=== PATIENT | female | born 1960 | race Caucasian/White ===

== ENCOUNTER → 2017-03-14 | Outpatient (CLI) | payer BC ==
[~2017-03-14] MED LIST: AMLO25TA PO; ASPI1TAB PO; FOLI5INJ2 SC; LOSA100T36 PO; METH2.5TA PO; VALS1TAB46 PO; VENL100T PO
[2017-03-14 16:32] LABS: ALBUMIN 3.9 GM/DL (3.2-5.2)
== END ==
LOC: M LAB 15:09
PROVIDERS: ATTEND Otolaryngology
DX: R79.89 Other specified abnormal findings of blood chemistry (principal)

== ENCOUNTER 2017-04-05 10:34 | Emergency (ER) | payer BC ==
[~2017-04-05] VITALS: Ht 152.4 cm; Wt 61.8 kg
[2017-04-05] MEDS ORDERED: LOSA100T36 PO (10:49)
[2017-04-05] MEDS ORDERED: VENL100T PO (10:49)
[2017-04-05] MEDS ORDERED: FOLI5INJ2 SC (10:49)
[2017-04-05] MEDS ORDERED: METH2.5TA PO (10:49)
[2017-04-05] MEDS ORDERED: AMLO25TA PO (10:49)
[2017-04-05] MEDS ORDERED: ASPIRIN 81 MG CHEW TABLET PO ONE (12:00)
[2017-04-05] MEDS: NITROGLYCERIN 0.4 MG SUBL TABLET SL PRN ×2 (12:00→12:06)
[2017-04-05 12:06] VITALS: BP 141/87
--- NOTE | 2017-04-05 12:32 | REP ---
Portable chest, AP view, patient sitting: Comparison 01/31/2008. The lung barraza are clear. The cardiac size is normal. The rohit, mediastinum, and bony thorax are unremarkable. Impression: Negative portable chest. Signed by Randolph Gutiérrez MD 04/05/2017 12:23 P
[2017-04-05 12:33] LABS: EOS # 0.1 K/mm3 (0.0-0.50); EOS % 1.5 % (0.0-3.0); LARGE UNSTAINED CELL # 0.2 K/mm3 (0.0-0.4); LARGE UNSTAINED CELL % 3.5 % (0.0-4.0); LYMPH # 1.5 K/mm3 (1.5-4.5); LYMPH % 31.1 % (24.0-44.0); MEAN CORPUSCULAR HEMOGLOBIN 32.7 pg (27.0-33.0); MEAN CORPUSCULAR VOLUME 96.3 fl (80.0-96.0); MONO # 0.2 K/mm3 (0.0-0.8); MONO % 4.4 % (0.0-5.0); NEUTROPHILS # 2.8 K/mm3 (1.8-7.7); NEUTROPHILS % 58.5 % (36.0-66.0); PLATELET COUNT, AUTOMATED 420 k/mm3 (150-450); RED CELL DISTRIBUTION WIDTH 13.2 % (11.5-14.5); WHITE BLOOD COUNT 4.8 K/mm3 (4.0-10.0)
[2017-04-05 12:45] LABS: ALBUMIN 3.9 GM/DL (3.2-5.2); ALBUMIN/GLOBULIN RATIO 1.15 (1.00-1.93); ALKALINE PHOSPHATASE 80 U/L (45-117); ALT/SGPT 26 U/L (12-78); ANION GAP 7 MEQ/L (8-16); AST/SGOT 19 U/L (15-37); BILIRUBIN,DIRECT 0.1 MG/DL (0.0-0.2); BILIRUBIN,TOTAL 0.3 MG/DL (0.2-1.0); BLOOD UREA NITROGEN 22 MG/DL (7-18); CALCIUM LEVEL 9.1 MG/DL (8.5-10.1); CARBON DIOXIDE LEVEL 28 MEQ/L (21-32); CHLORIDE LEVEL 103 MEQ/L (98-107); CREATININE FOR GFR 0.69 MG/DL (0.55-1.02); GLOMERULAR FILTRATION RATE > 60.0 (>51); GLUCOSE, FASTING 93 MG/DL (70-105); POTASSIUM SERUM 3.9 MEQ/L (3.5-5.1); SODIUM LEVEL 138 MEQ/L (136-145); TOTAL PROTEIN 7.3 GM/DL (6.4-8.2)
[2017-04-05] MEDS ORDERED: ASPI1TAB PO (16:24)
[2017-04-05 16:28] VITALS: BP 117/85
--- NOTE | 2017-04-06 07:40 | ECGEPIP ---
Stationary ECG Study [facility] - ED Test Date: 2017-04-05 Pat Name: JOSE CHAIDEZ Department: Room: - Gender: F [place] Ma[place]: TAMARA : 1960 Requested By: Darshan Quiñonez Order Number: [id number] Reading MD: Lottie Graham Measurements Intervals [place] Rate: 101 P: 64 GA: 184 QRS: 79 QRSD: 85 T: 28 QT: 328 QTc: 425 Interpretive Statements SINUS TACHYCARDIA MODERATE ST DEPRESSION NO PRIOR FOR COMPARISON Electronically Signed On 04-06-2017 7:39:39 EDT by Lottie Graham
--- NOTE | 2017-04-06 07:40 | ECGEPIP ---
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
== END 2017-04-05 16:34 | disposition home or self-care (01) ==
LOC: M ED 10:34
DX: R07.89 Other chest pain (principal); I10 Essential (primary) hypertension

== ENCOUNTER → 2017-04-13 | Outpatient (CLI) | payer BC ==
--- NOTE | 2017-04-13 17:53 | REP ---
Right knee five views: Comparison is 10/25/2006. There is tricompartment osteoarthritis that has significantly progressed. There is no joint effusion. Mineralization is normal. There are no calcifications or foreign bodies. Impression: Progressive tricompartment osteoarthritis. Signed by Randolph Gutiérrez MD 04/13/2017 05:38 P
== END ==
LOC: M RAD 16:22
PROVIDERS: ATTEND Nurse Practitioner Adult Health
DX: M25.561 Pain in right knee (principal)

== ENCOUNTER 2017-05-03 15:01 | Emergency (ER) | payer BC ==
[~2017-05-03] VITALS: Ht 152.4 cm; Wt 63.2 kg
[~2017-05-03 15:01] MED LIST changes: -VALS1TAB46 PO
[2017-05-03] MEDS ORDERED: VALS1TAB46 PO (15:11)
[2017-05-03 16:01] LABS: BASO % 0.4 % (0.0-1.0); EOS # 0.1 10^3/uL (0.0-0.50); EOS % 0.7 % (0.0-3.0); IMMATURE GRANULOCYTE % 0.4 % (0-0); LYMPH # 1.7 10^3/uL (1.5-4.5); LYMPH % 20.9 % (24.0-44.0); MEAN CORPUSCULAR HEMOGLOBIN 32.3 pg (27.0-33.0); MEAN CORPUSCULAR HGB CONC 33.3 g/dl (32.0-36.5); MEAN CORPUSCULAR VOLUME 96.9 fl (80.0-96.0); MONO # 0.7 10^3/uL (0.0-0.8); MONO % 8.4 % (0.0-5.0); NEUTROPHILS # 5.7 10^3/uL (1.8-7.7); NEUTROPHILS % 69.2 % (36.0-66.0); PLATELET COUNT, AUTOMATED 363 10^3/uL (150-450); RED CELL DISTRIBUTION WIDTH 13.2 % (11.5-14.5); WHITE BLOOD COUNT 8.2 10^3/uL (4.0-10.0)
[2017-05-03 16:15] LABS: ANION GAP 9 MEQ/L (8-16); BLOOD UREA NITROGEN 34 MG/DL (7-18); CALCIUM LEVEL 9.4 MG/DL (8.5-10.1); CARBON DIOXIDE LEVEL 26 MEQ/L (21-32); CHLORIDE LEVEL 102 MEQ/L (98-107); FREE T4 0.84 NG/DL (0.76-1.46); GLOMERULAR FILTRATION RATE > 60.0 (>51); GLUCOSE, FASTING 94 MG/DL (70-105); POTASSIUM SERUM 3.8 MEQ/L (3.5-5.1); SODIUM LEVEL 137 MEQ/L (136-145)
--- NOTE | 2017-05-03 16:27 | REP ---
Chest two views HISTORY: Syncope Comparison: 04/05/2017 The lungs are clear. The heart is normal in size. The pulmonary vasculature is normal in appearance. The bony structure is intact. IMPRESSION: No acute disease. Signed by Beck Ernandez MD 05/03/2017 04:19 P
--- NOTE | 2017-05-03 17:07 | ECGEPIP ---
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
[2017-05-03 20:48] VITALS: BP 122/56
== END 2017-05-03 20:50 | disposition home or self-care (01) ==
LOC: M ED 15:01
DX: R55 Syncope and collapse (principal); Z87.891 Personal history of nicotine dependence

== ENCOUNTER → 2017-06-06 | Outpatient (CLI) | payer BC ==
[~2017-06-06] MED LIST changes: +VALS1TAB46 PO
[2017-06-06 16:20] LABS: FREE T4 0.88 NG/DL (0.76-1.46)
== END ==
LOC: M LAB 15:07
PROVIDERS: ATTEND Nurse Practitioner Adult Health
DX: R94.6 Abnormal results of thyroid function studies (principal)

== ENCOUNTER → 2017-06-06 | Outpatient (CLI) | payer BC ==
[2017-06-06 15:47] LABS: BASO % 0.5 % (0.0-1.0); EOS # 0.1 10^3/uL (0.0-0.50); EOS % 1.2 % (0.0-3.0); IMMATURE GRANULOCYTE % 0.2 % (0-0); LYMPH # 1.6 10^3/uL (1.5-4.5); LYMPH % 28.2 % (24.0-44.0); MEAN CORPUSCULAR HEMOGLOBIN 32.4 pg (27.0-33.0); MEAN CORPUSCULAR VOLUME 98.3 fl (80.0-96.0); MONO # 0.3 10^3/uL (0.0-0.8); MONO % 4.7 % (0.0-5.0); NEUTROPHILS # 3.7 10^3/uL (1.8-7.7); NEUTROPHILS % 65.2 % (36.0-66.0); PLATELET COUNT, AUTOMATED 364 10^3/uL (150-450); RED CELL DISTRIBUTION WIDTH 13.1 % (11.5-14.5); WHITE BLOOD COUNT 5.7 10^3/uL (4.0-10.0)
[2017-06-06 16:07] LABS: ERYTHROCYTE SEDIMENTATION RATE 13 mm/hr (0-30)
[2017-06-06 16:08] LABS: ALBUMIN 3.7 GM/DL (3.2-5.2); ALT/SGPT 26 U/L (12-78); AST/SGOT 19 U/L (7-37); CREATININE FOR GFR 0.81 MG/DL (0.55-1.02); GLOMERULAR FILTRATION RATE > 60.0 (>51)
== END ==
LOC: M LAB 15:04
PROVIDERS: ATTEND Physician Assistant
DX: Z51.81 Encounter for therapeutic drug level monitoring (principal); Z79.899 Other long term (current) drug therapy

== ENCOUNTER → 2017-06-30 | Outpatient (CLI) | payer BC ==
[2017-06-30 16:15] LABS: BLOOD UREA NITROGEN 29 MG/DL (7-18); CREATININE FOR GFR 0.69 MG/DL (0.55-1.02); GLOMERULAR FILTRATION RATE > 60.0 (>51)
== END ==
LOC: M LAB 15:24
PROVIDERS: ATTEND Otolaryngology
DX: H90.3 Sensorineural hearing loss, bilateral (principal)

== ENCOUNTER → 2018-04-16 | Outpatient (REF) | payer BC | LOC: M SFHCPLAZ 12:01 | DX: A49.01 Methicillin susceptible Staphylococcus aureus infection, unspecified site (principal) | CPT/HCPCS: 87070 ==

== ENCOUNTER → 2018-04-26 | Outpatient (REF) | payer BC ==
[2018-04-26 17:41] LABS: BASO % 0.7 % (0.0-1.0); EOS # 0.1 10^3/uL (0.0-0.50); EOS % 1.8 % (0.0-3.0); HEMATOCRIT 37.2 % (36.0-47.0); HEMOGLOBIN 12.1 g/dl (12.0-15.5); IMMATURE GRANULOCYTE % 0.2 % (0-3.0); LYMPH # 1.5 10^3/uL (1.5-4.5); LYMPH % 32.6 % (24.0-44.0); MEAN CORPUSCULAR HEMOGLOBIN 31.2 pg (27.0-33.0); MEAN CORPUSCULAR HGB CONC 32.5 g/dl (32.0-36.5); MEAN CORPUSCULAR VOLUME 95.9 fl (80.0-96.0); MONO # 0.5 10^3/uL (0.0-0.8); MONO % 10.7 % (0.0-5.0); NEUTROPHILS # 2.4 10^3/uL (1.8-7.7); PLATELET COUNT, AUTOMATED 326 10^3/uL (150-450); RED BLOOD COUNT 3.88 10^6/uL (4.00-5.40); RED CELL DISTRIBUTION WIDTH 14.4 % (11.5-14.5); WHITE BLOOD COUNT 4.5 10^3/uL (4.0-10.0)
== END ==
LOC: M SFHCPLAZ 16:24
DX: T85.9XXD Unspecified complication of internal prosthetic device, implant and graft, subsequent encounter (principal); Y82.8 Other medical devices associated with adverse incidents
CPT/HCPCS: 85025

== ENCOUNTER → 2018-05-08 | Outpatient (CLI) | payer BC | LOC: M WHC 15:13 | DX: Z12.31 Encounter for screening mammogram for malignant neoplasm of breast (principal) | CPT/HCPCS: 77067 ==

== ENCOUNTER → 2018-12-26 | Outpatient (REF) | payer BC ==
[~2018-12-26] MED LIST changes: -ASPI1TAB PO; +ASPI81TA26 PO; -LOSA100T36 PO; +LOSA100T50 PO; +METH2.5T48 PO; -METH2.5TA PO; -VALS1TAB46 PO; +VALS1TAB66 PO
[2018-12-26 11:48] LABS: HEMATOCRIT 42.4 % (36.0-47.0); HEMOGLOBIN 13.9 g/dl (12.0-15.5); MEAN CORPUSCULAR HEMOGLOBIN 32.3 pg (27.0-33.0); MEAN CORPUSCULAR HGB CONC 32.8 g/dl (32.0-36.5); MEAN CORPUSCULAR VOLUME 98.4 fl (80.0-96.0); PLATELET COUNT, AUTOMATED 358 10^3/uL (150-450); RED BLOOD COUNT 4.31 10^6/uL (4.00-5.40); WHITE BLOOD COUNT 4.7 10^3/uL (4.0-10.0)
[2018-12-26 12:17] LABS: ALBUMIN 4.1 GM/DL (3.2-5.2); ALT/SGPT 27 U/L (12-78); BILIRUBIN,TOTAL 0.2 MG/DL (0.2-1.0); BLOOD UREA NITROGEN 21 MG/DL (7-18); CARBON DIOXIDE LEVEL 27 MEQ/L (21-32); CHLORIDE LEVEL 104 MEQ/L (98-107); CHOLESTEROL LEVEL 257 MG/DL (<200); CHOLESTEROL RISK RATIO 3.253 (<5); CREATININE FOR GFR 0.67 MG/DL (0.55-1.30); GLOMERULAR FILTRATION RATE > 60.0 (>51); GLUCOSE, FASTING 89 MG/DL (70-100); HDL CHOLESTEROL 79 MG/DL (>40); LDL CHOLESTEROL 157 MG/DL (<100); MAGNESIUM LEVEL 2.4 MG/DL (1.8-2.4); NON-HDL-C 178 MG/DL; POTASSIUM SERUM 4.7 MEQ/L (3.5-5.1); SODIUM LEVEL 139 MEQ/L (136-145); TOTAL PROTEIN 7.6 GM/DL (6.4-8.2); TRIGLYCERIDES LEVEL 107 MG/DL (<150)
== END ==
LOC: M SFHCPLAZ 08:39
PROVIDERS: ATTEND Internal Medicine
DX: Z01.818 Encounter for other preprocedural examination (principal); I10 Essential (primary) hypertension; M06.9 Rheumatoid arthritis, unspecified

== ENCOUNTER → 2019-06-27 | Outpatient (CLI) | payer BC ==
--- NOTE | 2019-06-27 16:34 | REPMRS ---
Patient History The patient states she has not had a clinical breast exam in over a year. Family history of prostate cancer at age 56 in brother. 3D TOMOSYNTHESIS WAS PERFORMED. The [facility] lifetime risk for breast cancer is 6.6%. Digital Woman Screen Mammo: June 27, 2019 - Exam #: [id number] Bilateral CC and MLO view(s) were taken. Technologist: Regina Smith, Technologist Prior study comparison: May 08, 2018, bilateral digital woman screen mammo performed at [facility]. FINDINGS: There are scattered fibroglandular densities. There has been no change in the appearance of the mammogram from the prior studies. There is a mild amount of residual fibroglandular tissue which is fairly symmetric. There is no interval development of dominant mass, architectural distortion, or clustered microcalcification suggestive of malignancy. Assessment: BI-RADS/ACR category 1 mammogram. Negative Mammogram. Recommendation Routine screening mammogram in 1 year (for women over age 40). This mammogram was interpreted with the aid of an FDA-approved computer-aided dectection system. Electronically Signed By: Randolph Bonilla MD 06/27/19 [id number]
== END ==
LOC: M WHC 15:36
PROVIDERS: ATTEND Nurse Practitioner Adult Health
DX: Z12.31 Encounter for screening mammogram for malignant neoplasm of breast (principal); Z80.42 Family history of malignant neoplasm of prostate

== ENCOUNTER → 2019-08-20 | Outpatient (CLI) | payer BC ==
[2019-08-20 16:37] LABS: BASO % 0.6 % (0.0-1.0); EOS # 0.1 10^3/uL (0.0-0.5); EOS % 0.8 % (0.0-3.0); HEMATOCRIT 41.4 % (36.0-47.0); HEMOGLOBIN 13.9 g/dl (12.0-15.5); LYMPH # 1.8 10^3/uL (1.5-5.0); LYMPH % 24.4 % (24.0-44.0); MEAN CORPUSCULAR HGB CONC 33.6 g/dl (32.0-36.5); MEAN CORPUSCULAR VOLUME 101.2 fl (80.0-96.0); MONO # 0.6 10^3/uL (0.0-0.8); MONO % 8.4 % (0.0-5.0); NEUTROPHILS # 4.7 10^3/uL (1.5-8.5); NEUTROPHILS % 65.5 % (36.0-66.0); PLATELET COUNT, AUTOMATED 377 10^3/uL (150-450); RED BLOOD COUNT 4.09 10^6/uL (4.00-5.40); WHITE BLOOD COUNT 7.2 10^3/uL (4.0-10.0)
[2019-08-20 16:59] LABS: ALBUMIN 4.2 GM/DL (3.2-5.2); ALT/SGPT 24 U/L (12-78); C REACTIVE PROTEIN QUANTITATIV < 0.30 MG/DL (0.00-0.30); CREATININE FOR GFR 0.66 MG/DL (0.55-1.30); GLOMERULAR FILTRATION RATE > 60.0 (>51)
[2019-08-20 17:22] LABS: ERYTHROCYTE SEDIMENTATION RATE 17 mm/hr (0-30)
== END ==
LOC: M LAB 15:11
PROVIDERS: ATTEND Physician Assistant
DX: Z79.899 Other long term (current) drug therapy (principal)

== ENCOUNTER → 2019-10-08 | Outpatient (CLI) | payer BC ==
--- NOTE | 2019-10-08 11:10 | REP ---
Chest x-ray: Two views. History: History of aspiration. Chest pain. Comparison chest x-ray: May 03, 2017. Findings: The lungs remain hyperinflated with flattening of the hemidiaphragms consistent with some degree of COPD. No infiltrate is seen. Pleural angles are sharp. Heart is not enlarged. Pulmonary vasculature is not increased. No bony abnormality. Impression: Hyperinflation. No infiltrate seen. No acute disease. Electronically Signed by Noe Napoles MD 10/08/2019 11:02 A
== END ==
LOC: M ADAMS 10:23
PROVIDERS: ATTEND Physician Assistant Medical
DX: T17.908A Unspecified foreign body in respiratory tract, part unspecified causing other injury, initial encounter (principal); Y92.009 Unspecified place in unspecified non-institutional (private) residence as the place of occurrence of the external cause

== ENCOUNTER → 2019-10-29 | Outpatient (CLI) | payer BC ==
[~2019-10-29] MED LIST changes: +E-Z-GAS II EFFERVESCENT PACKET (SODIUM BICARB./CITRIC ACID/SIMETHICONE) As Ordered ONE; +E-Z-HD 98% w/w 340GM SUSP BTL As Ordered ONE; +E-Z-PAQUE 96% w/w SUSP 176GM BTL As Ordered ONE
--- NOTE | 2019-10-29 09:09 | REP ---
SOFT-TISSUE NECK CT STUDY: HISTORY: Dysphagia. CT CONTRAST DOSE: 75 mL of intravenous Isovue 370. 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 There is some spray artifact from the metallic components of these in the upper most cuts through the brain. Otherwise, intracranial structures are unremarkable as visualized. Mastoidectomy defects are seen bilaterally with metallic components of the hearing aids in place. No other bony destructive lesion is seen. There is degenerative spondylosis in the cervical spine with degenerative disc disease most pronounced at C3-4, C4-5 and C6-7. Lung apices are clear. Thyroid lobes are normal and symmetric. There is no evidence of glottic or subglottic airway lesion. Epiglottis is normal in appearance. The tonsillar and peritonsillar soft tissues are unremarkable. The soft palate and floor of mouth structures appear intact. Submandibular glands are normal and symmetric. Parotid glands are unremarkable. No retropharyngeal swelling or mass lesion is seen. No vascular abnormality is observed. The upper thoracic and cervical esophagus appear unremarkable. IMPRESSION: No mass or adenopathy seen. Mild to moderate degenerative spondylosis change in the cervical spine. Surgically implant hearing aids present. Electronically Signed by Noe Napoles MD 10/29/2019 10:38 A
--- NOTE | 2019-10-30 11:05 | REP ---
Examination Requested: Esophagram Barium Swallow Reason For Exam/Comment: Dysphasia Esophagram: The procedure was performed WEI Torres, under the direct supervision of Dr. Bonilla. The images were reviewed with Dr. Bonilla. 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 The superior mediastinal structures are midline. The heart size is within normal limits. The lungs are clear. Liquid barium and gas producing granules were given in the erect position as well as liquid barium in the prone oblique position, in order to perform a double contrast esophagram examination. Oral and pharyngeal stages of the examination were unremarkable. Esophageal transport is efficient and there is no esophagitis, stricture, or mucosal ring noted. An episode of feline esophagus was visualized during the exam. There is a small hiatal hernia noted. Gastroesophageal reflux was visualized to the level just inferior to the thoracic inlet. Impression: 1. An episode of feline esophagus was visualized during the course of the exam. This may indicate reflux esophagitis. 2. Small hiatal hernia. 3. Gastroesophageal reflux was visualized to the level just inferior to the thoracic inlet. 18 seconds of fluoroscopy time was utilized for this procedure. Some fluoroscopic images are performed with last image hold technology. These images require no additional radiation. Reviewed by WEI Fuentes 10/29/2019 05:05 P Electronically Signed by Randolph Bonilla MD 10/30/2019 10:56 A
== END ==
LOC: M RAD 07:56
PROVIDERS: ATTEND Otolaryngology
DX: K21.9 Gastro-esophageal reflux disease without esophagitis (principal); R13.10 Dysphagia, unspecified; K44.9 Diaphragmatic hernia without obstruction or gangrene; M50.31 Other cervical disc degeneration, high cervical region; M50.321 Other cervical disc degeneration at C4-C5 level; M50.322 Other cervical disc degeneration at C5-C6 level; M50.323 Other cervical disc degeneration at C6-C7 level

== ENCOUNTER → 2020-03-26 | Outpatient (REF) | payer BC ==
[~2020-03-26] MED LIST changes: -E-Z-GAS II EFFERVESCENT PACKET (SODIUM BICARB./CITRIC ACID/SIMETHICONE) As Ordered ONE; -E-Z-HD 98% w/w 340GM SUSP BTL As Ordered ONE; -E-Z-PAQUE 96% w/w SUSP 176GM BTL As Ordered ONE
[2020-03-26 16:02] LABS: BASO % 0.4 % (0.0-1.0); EOS % 0.5 % (0.0-3.0); HEMOGLOBIN 13.6 g/dl (12.0-15.5); LYMPH # 1.4 10^3/uL (1.5-5.0); LYMPH % 24.9 % (24.0-44.0); MEAN CORPUSCULAR HEMOGLOBIN 33.7 pg (27.0-33.0); MEAN CORPUSCULAR HGB CONC 32.4 g/dl (32.0-36.5); MONO # 0.4 10^3/uL (0.0-0.8); NEUTROPHILS # 3.7 10^3/uL (1.5-8.5); NEUTROPHILS % 66.8 % (36.0-66.0); PLATELET COUNT, AUTOMATED 308 10^3/uL (150-450); RED BLOOD COUNT 4.04 10^6/uL (4.00-5.40); WHITE BLOOD COUNT 5.5 10^3/uL (4.0-10.0)
[2020-03-26 17:31] LABS: ALBUMIN 4.1 GM/DL (3.2-5.2); ALT/SGPT 26 U/L (12-78); BILIRUBIN,TOTAL 0.3 MG/DL (0.2-1.0); BLOOD UREA NITROGEN 21 MG/DL (7-18); CALCIUM LEVEL 9.3 MG/DL (8.5-10.1); CARBON DIOXIDE LEVEL 28 MEQ/L (21-32); CHLORIDE LEVEL 103 MEQ/L (98-107); CHOLESTEROL LEVEL 263 MG/DL (<200); CREATININE FOR GFR 0.69 MG/DL (0.55-1.30); GLOMERULAR FILTRATION RATE > 60.0 (>51); GLUCOSE, FASTING 83 MG/DL (70-100); HDL CHOLESTEROL 91 MG/DL (>40); LDL CHOLESTEROL 159 MG/DL (<100); NON-HDL-C 172 MG/DL; POTASSIUM SERUM 4.5 MEQ/L (3.5-5.1); SODIUM LEVEL 138 MEQ/L (136-145); TOTAL 25(OH) VITAMIN D 12.8 NG/ML (30.0-100.0); TOTAL PROTEIN 7.3 GM/DL (6.4-8.2); TRIGLYCERIDES LEVEL 66 MG/DL (<150)
== END ==
LOC: M LABDRWAD 09:27
PROVIDERS: ATTEND Physician Assistant Medical
DX: I10 Essential (primary) hypertension (principal); E55.9 Vitamin D deficiency, unspecified; E78.2 Mixed hyperlipidemia

== ENCOUNTER → 2020-04-01 | Outpatient (CLI) | payer BC | LOC: M LABSMTC 13:05 | PROVIDERS: ATTEND Anesthesiology | DX: Z11.59 Encounter for screening for other viral diseases (principal) ==

== ENCOUNTER 2020-04-06 11:19 | Day surgery (SDC) | payer BC ==
[~2020-04-06] VITALS: Ht 149.9 cm; Wt 56.2 kg
[~2020-04-06 11:19] MED LIST changes: +NS 1,000 ML IV ONE
[2020-04-06] MEDS ORDERED: LIDOCAINE 2% 100MG/5ML SDV (FOR ANES.) As Ordered ONE (11:42)
[2020-04-06] MEDS ORDERED: fentaNYL 100 MCG/2 ML INJECTION (J3010) As Ordered ONE (11:42)
[2020-04-06] MEDS ORDERED: propofoL 500 MG/50 ML VIAL As Ordered ONE (11:43)
--- NOTE | 2020-04-06 12:36 | ROOR ---
Patient Name: Dalia Graham Procedure Date: 04/06/2020 12:17 PM Date of : 1960 Age: 59 Room: [facility] Gender: Female Note Status: Finalized Procedure: Upper Endoscopy + Biopsies + Balloon Dilatation Indications: Dysphagia, Heartburn, Exclusion of Okeefe's esophagus Providers: Nico Gomez MD Referring MD: ROHITH Rodriguez Requesting Provider: Medicines: Monitored Anesthesia Care Complications: No immediate complications. Procedure: Pre-Anesthesia Assessment: - The heart rate, respiratory rate, oxygen saturations, blood pressure, adequacy of pulmonary ventilation, and response to care were monitored throughout the procedure. The Endoscope was introduced through the mouth, and advanced to the second part of duodenum. The upper GI endoscopy was accomplished without difficulty. The patient tolerated the procedure well. Findings: The Z-line was variable and was found 40 cm from the incisors. Multiple biopsies were obtained with cold forceps for evaluation to rule out Okeefe's Esophagus randomly at the gastroesophageal junction. A small hiatal hernia was present. No other significant abnormalities were identified in a careful examination of the stomach. Biopsies were taken with a cold forceps in the gastric antrum for Helicobacter pylori testing. The examined duodenum was normal. The lumen of the esophagus was dilated. Impression: - Z-line variable, 40 cm from the incisors. - Small hiatal hernia. - Normal examined duodenum. - Dilation in the entire esophagus. - Multiple biopsies were obtained at the gastroesophageal junction. - Biopsies were taken with a cold forceps for Helicobacter pylori testing. - The examination was otherwise normal. Recommendation: - Patient has a contact number available for emergencies. The signs and symptoms of potential delayed complications were discussed with the patient. Return to normal activities tomorrow. Written discharge instructions were provided to the patient. - Discharge patient to home. - Follow an antireflux regimen. - Continue present medications. - Await pathology results. - Telephone GI clinic for pathology results in 1 week. - Return to referring physician. - The findings and recommendations were discussed with the patient. Nico Gomez MD Nico Gomez MD 04/06/2020 12:36:08 PM Electronically signed by Nico Gomez MD Number of Addenda: 0 Note Initiated On: 04/06/2020 12:17 PM Estimated Blood Loss: Estimated blood loss: none.
--- NOTE | 2020-04-06 13:00 | ROOR ---
Patient Name: Dalia Graham Procedure Date: 04/06/2020 12:21 PM Date of : 1960 Age: 59 Room: [facility] Gender: Female Note Status: Finalized Procedure: Total Colonoscopy to Cecum + Biopsy Polypectomy Indications: Lower abdominal pain, Rectal bleeding Providers: Nico Gomez MD Referring MD: ROHITH Rodriguez Requesting Provider: Medicines: Monitored Anesthesia Care Complications: No immediate complications. Procedure: Pre-Anesthesia Assessment: - The heart rate, respiratory rate, oxygen saturations, blood pressure, adequacy of pulmonary ventilation, and response to care were monitored throughout the procedure. The Colonoscope was introduced through the anus and advanced to the cecum, identified by appendiceal orifice and ileocecal valve. The colonoscopy was performed without difficulty. The patient tolerated the procedure well. The quality of the bowel preparation was good. Findings: The perianal and digital rectal examinations were normal. Non-bleeding internal hemorrhoids were found during retroflexion. The hemorrhoids were small and Grade I (internal hemorrhoids that do not prolapse). Multiple small and large-mouthed diverticula were found in the recto-sigmoid colon, sigmoid colon and descending colon. A diminutive polyp was found in the proximal ascending colon. The polyp was flat. The polyp was removed with a cold biopsy forceps. Resection and retrieval were complete. Multiple sessile polyps were found at 20 cm proximal to the anus. The polyps were diminutive in size. These polyps were removed with a cold biopsy forceps. Resection and retrieval were complete. The exam was otherwise without abnormality on direct and retroflexion views. Impression: - Non-bleeding internal hemorrhoids. - Diverticulosis in the recto-sigmoid colon, in the sigmoid colon and in the descending colon. - One diminutive polyp in the proximal ascending colon, removed with a cold biopsy forceps. Resected and retrieved. - Multiple diminutive polyps at 20 cm proximal to the anus, removed with a cold biopsy forceps. Resected and retrieved. - The examination was otherwise normal on direct and retroflexion views. - The exam was otherwise normal to the cecum. Recommendation: - Patient has a contact number available for emergencies. The signs and symptoms of potential delayed complications were discussed with the patient. Return to normal activities tomorrow. Written discharge instructions were provided to the patient. - High fiber diet. - Discharge patient to home. - Continue present medications. - Await pathology results. - Telephone GI clinic for pathology results in 1 week. - Repeat colonoscopy for surveillance based on pathology results. - Return to referring physician. - The findings and recommendations were discussed with the patient. Nico Gomez MD Nico Gomez MD 04/06/2020 12:59:36 PM Electronically signed by Nico Gomez MD Number of Addenda: 0 Note Initiated On: 04/06/2020 12:21 PM Estimated Blood Loss: Estimated blood loss: none.
[2020-04-06 13:21] VITALS: BP 141/91
== END 2020-04-06 13:23 | disposition home or self-care (01) ==
LOC: M OPP 11:19
PROVIDERS: ATTEND Internal Medicine Gastroenterology
DX: K63.5 Polyp of colon (principal); K57.30 Diverticulosis of large intestine without perforation or abscess without bleeding; K64.0 First degree hemorrhoids; K62.5 Hemorrhage of anus and rectum; R10.30 Lower abdominal pain, unspecified; K22.8 Other specified diseases of esophagus; K44.9 Diaphragmatic hernia without obstruction or gangrene; R13.10 Dysphagia, unspecified; R12 Heartburn; M06.9 Rheumatoid arthritis, unspecified; I10 Essential (primary) hypertension; Z79.899 Other long term (current) drug therapy
CPT/HCPCS: 43239; 45380; 88305; J3010

== ENCOUNTER → 2020-10-06 | Outpatient (CLI) | payer BC ==
[~2020-10-06] MED LIST changes: -NS 1,000 ML IV ONE
--- NOTE | 2020-10-06 13:58 | REP ---
INDICATION: LEFT SHOULDER PAIN. COMPARISON: None. TECHNIQUE: Internal rotation, external rotation, axillary, and Y-view of the left shoulder. FINDINGS: Very mild osteopenia and minimal age-related degenerative changes. Findings include subtle cortical irregularity at the acromioclavicular joint and possible subtle broad-based osteophyte forming along the inferior margin of the humeral neck. No acute fracture or dislocation. IMPRESSION: Findings suggest mild osteopenia and degenerative changes. <Electronically signed by Reji Mello > 10/06/20 [id number]
== END ==
LOC: M SOG 13:24
PROVIDERS: ATTEND Orthopaedic Surgery Sports Medicine
DX: M75.42 Impingement syndrome of left shoulder (principal); M85.9 Disorder of bone density and structure, unspecified

== ENCOUNTER → 2020-10-26 | Outpatient (REF) | payer BC ==
[2020-10-26 18:25] LABS: HEMATOCRIT 40.2 % (36.0-47.0); HEMOGLOBIN 13.2 g/dl (12.0-15.5); MEAN CORPUSCULAR HEMOGLOBIN 34.9 pg (27.0-33.0); MEAN CORPUSCULAR HGB CONC 32.8 g/dl (32.0-36.5); MEAN CORPUSCULAR VOLUME 106.3 fl (80.0-96.0); PLATELET COUNT, AUTOMATED 375 10^3/uL (150-450); RED BLOOD COUNT 3.78 10^6/uL (4.00-5.40); WHITE BLOOD COUNT 4.6 10^3/uL (4.0-10.0)
[2020-10-26 18:36] LABS: INR 0.94; PROTHROMBIN TIME 12.8 SECONDS (12.5-14.3)
[2020-10-26 18:42] LABS: BLOOD UREA NITROGEN 13 MG/DL (7-18); CALCIUM LEVEL 9.5 MG/DL (8.8-10.2); CARBON DIOXIDE LEVEL 28 MEQ/L (21-32); CHLORIDE LEVEL 101 MEQ/L (98-107); CREATININE FOR GFR 0.54 MG/DL (0.55-1.30); GLOMERULAR FILTRATION RATE > 60.0 (>45); GLUCOSE, FASTING 67 MG/DL (70-100); POTASSIUM SERUM 4.2 MEQ/L (3.5-5.1); SODIUM LEVEL 137 MEQ/L (136-145)
== END ==
LOC: M SFHCADAM 14:21
PROVIDERS: ATTEND Physician Assistant Medical
DX: Z01.818 Encounter for other preprocedural examination (principal); M75.42 Impingement syndrome of left shoulder; I51.7 Cardiomegaly

== ENCOUNTER → 2020-10-26 | Outpatient (CLI) | payer BC ==
--- NOTE | 2020-10-27 02:28 | REP ---
INDICATION: PRE OP COMPARISON: 10/08/2019 TECHNIQUE: PA and lateral. FINDINGS: The mediastinum and cardiac silhouette are normal. The lung barraza are clear and without acute consolidation, effusion, or pneumothorax. The skeletal structures are intact and normal. IMPRESSION: No acute cardiopulmonary process. <Electronically signed by Reji Mello > 10/27/20 0224
== END ==
LOC: M ADAMS 14:22
PROVIDERS: ATTEND Physician Assistant Medical
DX: Z01.818 Encounter for other preprocedural examination (principal); M75.42 Impingement syndrome of left shoulder

== ENCOUNTER → 2020-10-30 | Outpatient (CLI) | payer BC ==
[~2020-10-30] MED LIST changes: +IRBE300T7; +OMEP-221
== END ==
LOC: M LABSMTC 13:59
PROVIDERS: ATTEND Anesthesiology
DX: Z01.812 Encounter for preprocedural laboratory examination (principal); Z20.822 Contact with and (suspected) exposure to COVID-19

== ENCOUNTER 2020-11-04 06:07 | Day surgery (SDC) | payer BC ==
[~2020-11-04] VITALS: Ht 149.9 cm; Wt 60.5 kg
[~2020-11-04 06:07] MED LIST changes: +LIDOCAINE 1% MDV 20ML VIAL SQ PRN; +LR 1,000 ML IV ONE; +ceFAZolin SOD 2 GM in IV 1 EA IV ONE
[2020-11-04] MEDS ORDERED: fentaNYL 100 MCG/2 ML INJECTION (J3010) IV PRN ×2 (07:01→09:45)
[2020-11-04] MEDS ORDERED: MIDAZOLAM INJ 2MG/2ML VIAL (J2250 PER 1MG) IV PRN (07:01)
[2020-11-04] MEDS ORDERED: LIDOCAINE 1% MDV 20ML VIAL XX ONE (07:10)
[2020-11-04] MEDS ORDERED: BUPIVACAINE HCL 0.5% 30 ML VIAL XX ONE (07:10)
[2020-11-04] MEDS ORDERED: dexameTHASONE 10MG/1ML VIAL PRES.FREE (J1100 PER 1MG) XX ONE (07:10)
[2020-11-04] MEDS ORDERED: ACETAMINOPHEN 1000MG 100ML IV BTL (OFIRMEV) (J0131 PER 10MG) As Ordered ONE (07:13)
[2020-11-04] MEDS ORDERED: LIDOCAINE 2% 100MG/5ML SDV (FOR ANES.) As Ordered ONE (07:13)
[2020-11-04] MEDS ORDERED: ROCURONIUM BROMIDE 50 MG/5 ML VIAL As Ordered ONE ×2 (07:13→08:51)
[2020-11-04] MEDS ORDERED: EPINEPHrine INJ 1 MG/ML 1ML AMP As Ordered ONE (07:13)
[2020-11-04] MEDS ORDERED: MIDAZOLAM INJ 2MG/2ML VIAL (J2250 PER 1MG) As Ordered ONE (07:13)
[2020-11-04] MEDS ORDERED: propofoL 200 MG/20 ML VIAL As Ordered ONE (07:13)
[2020-11-04] MEDS ORDERED: fentaNYL 100 MCG/2 ML INJECTION (J3010) As Ordered ONE (07:13)
[2020-11-04] MEDS ORDERED: dexameTHASONE 4 MG/ML 1ML VIAL (J1100 PER 1MG) As Ordered ONE (07:14)
[2020-11-04] MEDS ORDERED: ONDANSETRON 4MG/2ML VIAL As Ordered ONE (07:14)
[2020-11-04] MEDS ORDERED: PHENYLephrine 500MCG 5ML (100MCG/ML) SYRINGE As Ordered ONE (08:07)
[2020-11-04] MEDS ORDERED: SUGAMMADEX SODIUM 500 MG/5 ML VIAL (BRIDION) As Ordered ONE (09:11)
[2020-11-04] MEDS ORDERED: ePHEDrine SULFATE 25 MG/5 ML(5MG/ML) SYRINGE As Ordered ONE (09:11)
--- NOTE | 2020-11-04 09:38 | ROOPDOC ---
[facility] Report Of Operation Report of Operation DATE OF PROCEDURE: 11/04/20 PREPROCEDURE DIAGNOSES: Left shoulder rotator cuff tear and acromioclavicular joint arthrosis and possible biceps instability POSTPROCEDURE DIAGNOSES: Left shoulder massive irreparable rotator cuff tear and biceps instability and acromioclavicular joint arthrosis. PROCEDURE: Left shoulder arthroscopy, distal clavicle excision, subpectoral biceps tenodesis and debridement SURGEON: Dr. Mahesh Love MD DANCE DIRECTOR: ANESTHESIA: Gen. anesthesia and preoperative block by Dr. Ortega. ESTIMATED BLOOD LOSS: Approximately 20 mL. COMPLICATIONS: None . REMARKS: None. PROCEDURE NOTE: This 60-year-old female had signs and symptoms consistent with large rotator cuff tear. We discussed the pros and cons risks and benefits going ahead with arthroscopic surgery possible rotator cuff repair and possible biceps tenodesis possible distal clavicle excision and possible subacromial decompression. She unfortunately was only able to have a CT arthrogram rather than MRI due to cochlear implants. I warned her before surgery and documented in my clinical notes possibility of being unable to perform a repair of the RC. She wishes to go ahead and marked the left upper extremity and proceeded to surgery. DESCRIPTION OF PROCEDURE: The patient was brought to the operating room theater. There were placed supine on the beachchair positioner spider arm guthrie placed to the patient's left side. All bony prominences appropriately padded general anesthesia was induced. Patient was sat up at a 55 angle. Left upper extremity was prepped and draped in the usual sterile fashion with chlorhexidine-based prep solution allowing over 3 minutes drying time prior to draping. Preoperative timeout was performed to confirm the site the patient and the surgery. I began by inserting the arthroscope through the posterior portal into the intra-articular portion of the left shoulder. I performed a thorough diagnostic arthroscopy. There is mild grade 1-2 softening of the cartilage on both the glenoid and humeral head side. There is obvious full-thickness large massive retracted rotator cuff tear with only a few fibers remaining anteriorly. Biceps had hypertrophy with multiple longitudinal tearing and fraying areas. Subscapularis appeared normal however thin. The rotator cuff tear not only extended from supraspinatus but all the way to the external rotators. Intra-articular biceps tenotomy was then performed with electrocautery. I performed a complete bursectomy and debridement of the undersurface of the anterior lateral acromion. Anterolateral acromion appeared flat with no obvious signs of impingement. I performed a small lateral accessory portal as well as an anterior accessory portal at the level of the acromioclavicular joint just posterior to the biceps tendon through the rotator interval. I performed a distal clavicle excision for a length of 1.1 cm. I took her arthroscopy pictures throughout the case and I saved them onto the system. I then turned my attention to performing the subpectoral biceps tenodesis. A made a small longitudinal incision at the proximal anterior medial upper end of the humerus overlying the long head of the biceps. I carried the dissection down through skin and subcutaneous tissue to achieve meticulous hemostasis. Identified the cephalic vein. This was retracted laterally. I identified the long head of the biceps. This was delivered through the incision. I performed 5 whipstitches using ArthCantimer tenodesis system and Mark needle. Suture is cut and then the ends passed in opposite directions through the button. At spade tip drill was used at the biceps groove to perform unicortical hole. I then passed the button into the hole flip the button and passed one suture limb through the biceps and locked it down in place using 5 interrupted half hitches with the sutures cut short. I thoroughly irrigated the wound. Subcutaneous tissues were closed with 2-0 Vicryl sutures and skin with 3-0 Monocryl. Skin cleaned wet and dry dressing. Steri-Strips are applied. Adaptic 4 x 8 gauze and abdominal pad dressings were then placed and taped into this place. Upper extremity is placed into a sling. Patient was woken up from the general anesthetic transferred off the operating room table and taken to postanesthetic care unit in stable condition. All sponge needle and instrument counts are correct. No complications. Estimated blood loss 20 mL. Plan for the patient is to be in a sling for the first 2 weeks pendulum exercises no heavy lifting start elbow wrist and hand exercises to avoid stiffness and follow-up in the office in 2 weeks' time. Prescription has been sent in to the pharmacy of choice electronically and they may be discharged home when they are comfortable. Change the dressing postoperative day 1 and as needed and avoid showering over top for the first 2 weeks. Postoperative wound instructions were given. It was recommended to keep the wound clean and dry. Dressing changes as needed. It was reinforced with the patient that they should call us or be seen immediately for redness, drainage, or fever. Risk factors for harms from taking opioid medications discussed and assessed including but not limited to personal or family history of substance use disorder, anxiety or depression, , age 65 or older, COPD or other underlying respiratory conditions, and renal or hepatic insufficiency. Discussed with patient concerns and determined any harms they may experience or be currently experiencing such as nausea or constipation, feeling sedated or confused, breathing interruptions during sleep, or taking or craving more opioids than prescribed or difficulty controlling use (addiction). Discussed early warning signs of overdose including confusion, sedation, slurred speech, abnormal gait. All MAHESH LOVE MD Nov 04, 2020 09:38
[2020-11-04] MEDS ORDERED: oxyCODONE 5MG TAB PO PRN (09:45)
[2020-11-04] MEDS ORDERED: HYDROMORPHONE HCL 0.5 MG/ 0.5 ML SYRINGE (J1170 PER 1) IV PRN (09:45)
[2020-11-04] MEDS ORDERED: LR 1,000 ML IV SCH ×2 (09:45→10:10)
[2020-11-04] MEDS ORDERED: LABETALOL 100MG/20ML VIAL IV PRN (09:45)
[2020-11-04] MEDS ORDERED: ONDANSETRON 4MG/2ML VIAL IV PRN ×2 (09:45→10:05)
[2020-11-04] MEDS ORDERED: hydrALAZINE 20MG/ML 1ML VIAL (J0360 PER 20MG) IV PRN (09:45)
[2020-11-04] MEDS ORDERED: MORPHINE 2 MG/ML 1ML VIAL (J2270) IV PRN (10:05)
[2020-11-04] MEDS ORDERED: ACETAMINOPHEN TAB 650MG DOSE (2X325MG) PO PRN (10:05)
[2020-11-04] MEDS ORDERED: PERCOCET 5MG/325MG TAB PO PRN (10:05)
[2020-11-04 10:28] VITALS: BP 139/88
== END 2020-11-04 11:54 | disposition home or self-care (01) ==
LOC: M SDC 06:07
PROVIDERS: ATTEND Orthopaedic Surgery Sports Medicine
DX: M75.122 Complete rotator cuff tear or rupture of left shoulder, not specified as traumatic (principal); M19.012 Primary osteoarthritis, left shoulder; M25.312 Other instability, left shoulder; I10 Essential (primary) hypertension; K21.9 Gastro-esophageal reflux disease without esophagitis; F32.9 Major depressive disorder, single episode, unspecified; Z79.899 Other long term (current) drug therapy; Z96.21 Cochlear implant status
CPT/HCPCS: 23430; 29823; 29824; 64415; 88304; C1713; J0131; J0171; J0690; J1100; J2250; J2370; J2405; J3010

== ENCOUNTER 2020-12-10 15:15 | Outpatient (RCR) | payer BC ==
[~2020-12-10 15:15] MED LIST changes: -LIDOCAINE 1% MDV 20ML VIAL SQ PRN; -LR 1,000 ML IV ONE; -ceFAZolin SOD 2 GM in IV 1 EA IV ONE
== END 2020-12-21 ==
LOC: M PT 15:15
PROVIDERS: ATTEND Orthopaedic Surgery Sports Medicine
DX: Z48.89 Encounter for other specified surgical aftercare (principal)

== ENCOUNTER 2020-12-29 15:15 | Outpatient (RCR) | payer BC | END 2021-01-20 | LOC: M PT 15:15 | PROVIDERS: ATTEND Orthopaedic Surgery Sports Medicine | DX: Z48.89 Encounter for other specified surgical aftercare (principal) ==

== ENCOUNTER → 2021-01-06 | Outpatient (CLI) | payer BC ==
--- NOTE | 2021-01-06 16:21 | REPMRS ---
Patient History The patient states she has not had a clinical breast exam in over a year. Family history of prostate cancer at age 56 in brother. Tomosynthesis is performed. Volpara breast density is c. Tyrer-zick lifetime risk of breast cancer 6.2%. Patient states no breast complaints today. Patient has signed MRS History Sheet. Moderna vaccine 07/22/21 left arm. 08/19/20 left arm. Digital Woman Screen Mammo: January 06, 2021 - Exam #: [id number] Bilateral CC and MLO view(s) were taken. Technologist: RT Sky Prior study comparison: June 27, 2019, bilateral digital woman screen mammo performed at [facility]. May 08, 2018, bilateral digital woman screen mammo performed at [facility]. FINDINGS: There are scattered fibroglandular densities. There has been no change in the appearance of the mammogram from the prior studies. There is a mild amount of residual fibroglandular tissue which is fairly symmetric. There is no interval development of dominant mass, architectural distortion, or clustered microcalcification suggestive of malignancy. Assessment: BI-RADS/ACR category 1 mammogram. Negative Mammogram. Recommendation Routine screening mammogram in 1 year (for women over age 40). This mammogram was interpreted with the aid of an FDA-approved computer-aided dectection system. Electronically Signed By: Randolph Bonilla MD 01/06/21 [id number]
--- NOTE | 2021-01-06 16:58 | DEXAMM ---
INDICATION: Z78.0 MENOPAUSE. COMPARISON: 09/29/2009. TECHNIQUE: Bone density was measured using dual-energy x-ray absorptiometry (DEXA). FINDINGS: AP SPINE L1-L4 BMD 0.894 g/cm2 Young Adult T-Score -2.3 Age Matched Z-Score -1.1. LT FEMUR, TOTAL BMD 0.802 g/cm2 Young Adult T-Score -1.6 Age Matched Z-Score -0.7. LT NECK BMD 0.823 g/cm2 Young Adult T-Score -1.5 Age Matched Z-Score -0.3. RT FEMUR, TOTAL BMD 0.853 g/cm2 Young Adult T-Score -1.2 Age Matched Z-Score -0.3. RT NECK BMD 0.881 g/cm2 Young Adult T-Score -1.1 Age Matched Z-Score 0.1. IMPRESSION: There is low bone density of the spine. There is low bone density of the left hip. There is low bone density of the right hip. The density of the left hip has decreased 17.2% since initial exam on 09/29/2009. The density of the right hip has decreased 13.8% since the initial exam on 09/29/2009. . FOLLOW-UP: Recommendation for the next bone density exam: 2 years. <Electronically signed by Randolph Bonilla > 01/06/21 [id number]
== END ==
LOC: M WHC 14:43
PROVIDERS: ATTEND Physician Assistant Medical
DX: Z12.31 Encounter for screening mammogram for malignant neoplasm of breast (principal); M85.89 Other specified disorders of bone density and structure, multiple sites; Z78.0 Asymptomatic menopausal state; Z80.42 Family history of malignant neoplasm of prostate

== ENCOUNTER → 2021-05-19 | Outpatient (REF) | payer BC | LOC: M SFHCADAM 13:23 | PROVIDERS: ATTEND Physician Assistant | DX: R05.8 Other specified cough (principal); R09.81 Nasal congestion ==

== ENCOUNTER → 2021-08-20 | Outpatient (REF) | payer BC ==
[~2021-08-20] MED LIST changes: +LOSA100T45 PO; -LOSA100T50 PO; -OMEP-221; +OMEP40CA5
== END ==
LOC: M SFHCADAM 12:27
PROVIDERS: ATTEND Physician Assistant Medical
DX: D64.9 Anemia, unspecified (principal)

== ENCOUNTER → 2021-11-02 | Outpatient (REF) | payer BC ==
[2021-11-02 12:47] LABS: BASO % 0.7 % (0.0-1.0); EOS % 0.7 % (0.0-3.0); HEMATOCRIT 42.1 % (36.0-47.0); HEMOGLOBIN 14.4 g/dl (12.0-15.5); LYMPH # 1.1 10^3/uL (1.5-5.0); LYMPH % 24.5 % (24.0-44.0); MEAN CORPUSCULAR HEMOGLOBIN 32.7 pg (27.0-33.0); MEAN CORPUSCULAR HGB CONC 34.2 g/dl (32.0-36.5); MEAN CORPUSCULAR VOLUME 95.7 fl (80.0-96.0); MONO # 0.5 10^3/uL (0.0-0.8); MONO % 11.7 % (2.0-8.0); NEUTROPHILS # 2.7 10^3/uL (1.5-8.5); NEUTROPHILS % 61.7 % (36.0-66.0); PLATELET COUNT, AUTOMATED 383 10^3/uL (150-450); WHITE BLOOD COUNT 4.4 10^3/uL (4.0-10.0)
[2021-11-02 13:40] LABS: PERCENT SATURATION 68.7 % (13.2-45.0)
== END ==
LOC: M SFHCADAM 07:21
PROVIDERS: ATTEND Physician Assistant Medical
DX: D50.8 Other iron deficiency anemias (principal)

== ENCOUNTER → 2022-06-30 | Outpatient (CLI) | payer BC | LOC: M WHC 15:17 | PROVIDERS: ATTEND Physician Assistant Medical | DX: Z12.31 Encounter for screening mammogram for malignant neoplasm of breast (principal) ==

== ENCOUNTER → 2022-09-28 | Outpatient (REF) | payer BC ==
[2022-09-28 18:00] LABS: BASO # 0.1 10^3/uL (0.0-0.2); BASO % 1.1 % (0.0-1.0); EOS # 0.1 10^3/uL (0.0-0.5); EOS % 1.1 % (0.0-3.0); HEMATOCRIT 34.7 % (36.0-47.0); HEMOGLOBIN 11.2 g/dl (12.0-15.5); LYMPH % 14.2 % (24.0-44.0); MEAN CORPUSCULAR HEMOGLOBIN 32.4 pg (27.0-33.0); MEAN CORPUSCULAR HGB CONC 32.3 g/dl (32.0-36.5); MEAN CORPUSCULAR VOLUME 100.3 fl (80.0-96.0); MONO # 0.7 10^3/uL (0.0-0.8); MONO % 9.7 % (2.0-8.0); NEUTROPHILS # 5.1 10^3/uL (1.5-8.5); NEUTROPHILS % 73.6 % (36.0-66.0); PLATELET COUNT, AUTOMATED 575 10^3/uL (150-450); RED BLOOD COUNT 3.46 10^6/uL (4.00-5.40)
[2022-09-28 18:38] LABS: IRON (FE) 40 UG/DL (50-170); PERCENT SATURATION 9.4 % (13.2-45.0); TOTAL IRON BINDING CAPACITY 425 UG/DL (250-425)
[2022-09-28 18:39] LABS: ALBUMIN 3.9 G/DL (3.2-5.2); ALKALINE PHOSPHATASE 61 U/L (46-116); ALT/SGPT 24 U/L (7.0-40); AST/SGOT 28 U/L (<34); BILIRUBIN,TOTAL 0.3 MG/DL (0.3-1.2); BLOOD UREA NITROGEN 22 MG/DL (9-23); CALCIUM LEVEL 9.7 MG/DL (8.3-10.6); CARBON DIOXIDE LEVEL 29 MMOL/L (20-31); CHLORIDE LEVEL 96 MMOL/L (98-107); CHOLESTEROL LEVEL 184 MG/DL (<200); CHOLESTEROL RISK RATIO 2.18 (<5); GLOMERULAR FILTRATION RATE > 60.0 (>45); GLUCOSE, FASTING 83 MG/DL (74-106); HDL CHOLESTEROL 84.2 MG/DL (>40); LDL CHOLESTEROL 78.4 MG/DL (<100); NON-HDL-C 99.8 MG/DL; POTASSIUM SERUM 4.2 MMOL/L (3.5-5.1); SODIUM LEVEL 132 MMOL/L (136-145); TOTAL PROTEIN 6.5 G/DL (5.7-8.2); TRIGLYCERIDES LEVEL 107 MG/DL (<150)
[2022-09-28 18:40] LABS: THYROID STIMULATING HORMONE 2.752 uIU/ML (0.55-4.78)
[2022-09-28 18:41] LABS: FERRITIN 8.2 NG/ML (7.3-270.7)
== END ==
LOC: M SFHCADAM 12:01
PROVIDERS: ATTEND Physician Assistant Medical
DX: E78.2 Mixed hyperlipidemia (principal); I10 Essential (primary) hypertension; F41.9 Anxiety disorder, unspecified; E55.9 Vitamin D deficiency, unspecified; Z79.899 Other long term (current) drug therapy

== ENCOUNTER → 2022-10-19 | Outpatient (CLI) | payer BC | LOC: M OUTALCOH 07:39 | PROVIDERS: ATTEND Psychiatry & Neurology Psychiatry | DX: Z03.89 Encounter for observation for other suspected diseases and conditions ruled out (principal) ==

== ENCOUNTER 2022-11-17 16:00 | Outpatient (RCR) | payer BC ==
[~2022-11-17 16:00] MED LIST changes: -LOSA100T45 PO; +LOSA100T46 PO
== END 2022-11-20 ==
LOC: M OUTALCOH 16:00
PROVIDERS: ATTEND Psychiatry & Neurology Psychiatry
DX: F10.10 Alcohol abuse, uncomplicated (principal); Z72.0 Tobacco use

== ENCOUNTER 2022-12-15 15:54 | Outpatient (RCR) | payer BC | END 2022-12-21 | LOC: M OUTALCOH 15:54 | PROVIDERS: ATTEND Psychiatry & Neurology Psychiatry | DX: F10.10 Alcohol abuse, uncomplicated (principal); Z72.0 Tobacco use ==

== ENCOUNTER → 2023-01-09 | Outpatient (REF) | payer BC ==
[2023-01-09 17:24] LABS: BASO % 0.5 % (0.0-1.0); EOS % 0.5 % (0.0-3.0); HEMATOCRIT 40.8 % (36.0-47.0); HEMOGLOBIN 14.2 g/dl (12.0-15.5); LYMPH # 1.3 10^3/uL (1.5-5.0); MEAN CORPUSCULAR HEMOGLOBIN 33.4 pg (27.0-33.0); MEAN CORPUSCULAR HGB CONC 34.8 g/dl (32.0-36.5); MONO # 0.6 10^3/uL (0.0-0.8); MONO % 9.2 % (2.0-8.0); NEUTROPHILS # 4.5 10^3/uL (1.5-8.5); NEUTROPHILS % 69.3 % (36.0-66.0); PLATELET COUNT, AUTOMATED 393 10^3/uL (150-450); RED BLOOD COUNT 4.25 10^6/uL (4.00-5.40); WHITE BLOOD COUNT 6.4 10^3/uL (4.0-10.0)
[2023-01-09 18:02] LABS: BLOOD UREA NITROGEN 15 MG/DL (9-23); CALCIUM LEVEL 9.3 MG/DL (8.3-10.6); CARBON DIOXIDE LEVEL 29 MMOL/L (20-31); CHLORIDE LEVEL 94 MMOL/L (98-107); CREATININE FOR GFR 0.77 MG/DL (0.55-1.30); GLOMERULAR FILTRATION RATE > 60.0 (>45); GLUCOSE, FASTING 86 MG/DL (74-106); IRON (FE) 61 UG/DL (50-170); PERCENT SATURATION 17.5 % (13.2-45.0); POTASSIUM SERUM 4.4 MMOL/L (3.5-5.1); SODIUM LEVEL 129 MMOL/L (136-145); TOTAL IRON BINDING CAPACITY 348 UG/DL (250-425)
[2023-01-09 18:04] LABS: FERRITIN 29.7 NG/ML (7.3-270.7)
== END ==
LOC: M SFHCADAM 14:50
PROVIDERS: ATTEND Physician Assistant Medical
DX: Z01.818 Encounter for other preprocedural examination (principal); D50.8 Other iron deficiency anemias

== ENCOUNTER 2023-01-12 09:42 | Outpatient (RCR) | payer BC | END 2023-01-20 | LOC: M OUTALCOH 09:42 | PROVIDERS: ATTEND Psychiatry & Neurology Psychiatry | DX: F10.10 Alcohol abuse, uncomplicated (principal); Z72.0 Tobacco use ==

== ENCOUNTER → 2023-01-31 | Outpatient (REF) | payer BC ==
[2023-01-31 18:13] LABS: BLOOD UREA NITROGEN 32 MG/DL (9-23); CALCIUM LEVEL 10.1 MG/DL (8.3-10.6); CARBON DIOXIDE LEVEL 30 MMOL/L (20-31); CHLORIDE LEVEL 99 MMOL/L (98-107); CREATININE FOR GFR 0.69 MG/DL (0.55-1.30); GLOMERULAR FILTRATION RATE > 60.0 (>45); GLUCOSE, FASTING 90 MG/DL (74-106); SODIUM LEVEL 133 MMOL/L (136-145)
== END ==
LOC: M SFHCADAM 11:45
PROVIDERS: ATTEND Physician Assistant Medical
DX: E87.1 Hypo-osmolality and hyponatremia (principal)

== ENCOUNTER → 2023-05-23 | Outpatient (RCR) | payer BC ==
[~2023-05-23] MED LIST changes: +ALEN35TA56 PO; +CALTTAB6 PO; +CELE1CAP99 PO; +CHLO125TA PO; +FOLI1TAB11 PO; +HYDR200T46 PO; -IRBE300T7; +IRBE300T7 PO; +IRON65TA2 PO; +METH50IN8 SQ; -OMEP40CA5; +OMEP40CA5 PO; +THERTAB52 PO; +VENL150C43 PO
== END ==
LOC: M PT 04-25 13:28
PROVIDERS: ATTEND Orthopaedic Surgery Hand Surgery
DX: M19.012 Primary osteoarthritis, left shoulder (principal)

== ENCOUNTER → 2023-05-23 | Outpatient (REF) | payer BC ==
[2023-05-23 18:31] LABS: BASO % 0.6 % (0.0-1.0); EOS % 0.4 % (0.0-3.0); HEMATOCRIT 40.8 % (36.0-47.0); HEMOGLOBIN 14.6 g/dl (12.0-15.5); LYMPH # 0.8 10^3/uL (1.5-5.0); LYMPH % 17.9 % (24.0-44.0); MEAN CORPUSCULAR HEMOGLOBIN 35.3 pg (27.0-33.0); MEAN CORPUSCULAR HGB CONC 35.8 g/dl (32.0-36.5); MEAN CORPUSCULAR VOLUME 98.6 fl (80.0-96.0); MONO # 0.4 10^3/uL (0.0-0.8); MONO % 8.2 % (2.0-8.0); NEUTROPHILS # 3.4 10^3/uL (1.5-8.5); NEUTROPHILS % 72.5 % (36.0-66.0); PLATELET COUNT, AUTOMATED 398 10^3/uL (150-450); RED BLOOD COUNT 4.14 10^6/uL (4.00-5.40); WHITE BLOOD COUNT 4.6 10^3/uL (4.0-10.0)
[2023-05-23 18:38] LABS: ERYTHROCYTE SEDIMENTATION RATE 14 mm/hr (0-30)
[2023-05-23 19:02] LABS: ALBUMIN 4.2 G/DL (3.2-5.2); ALT/SGPT 28 U/L (7.0-40); AST/SGOT 34 U/L (<34); BLOOD UREA NITROGEN 23 MG/DL (9-23); GLOMERULAR FILTRATION RATE > 60.0 (>45)
== END ==
LOC: M LABDRWAD 16:03
PROVIDERS: ATTEND Physician Assistant
DX: Z79.899 Other long term (current) drug therapy (principal)

== ENCOUNTER → 2023-05-23 | Outpatient (REF) | payer BC ==
[2023-05-23 19:08] LABS: ALBUMIN 4.2 G/DL (3.2-5.2); ALKALINE PHOSPHATASE 67 U/L (46-116); ALT/SGPT 28 U/L (7.0-40); AST/SGOT 30 U/L (<34); BILIRUBIN,TOTAL 0.3 MG/DL (0.3-1.2); BLOOD UREA NITROGEN 23 MG/DL (9-23); CALCIUM LEVEL 9.6 MG/DL (8.3-10.6); CARBON DIOXIDE LEVEL 26 MMOL/L (20-31); CHLORIDE LEVEL 90 MMOL/L (98-107); CHOLESTEROL LEVEL 242 MG/DL (<200); CHOLESTEROL RISK RATIO 3.03 (<5); CREATININE FOR GFR 0.81 MG/DL (0.55-1.30); GLOMERULAR FILTRATION RATE > 60.0 (>45); GLUCOSE, FASTING 82 MG/DL (74-106); HDL CHOLESTEROL 79.8 MG/DL (>40); NON-HDL-C 162.2 MG/DL; POTASSIUM SERUM 3.5 MMOL/L (3.5-5.1); SODIUM LEVEL 128 MMOL/L (136-145); THYROID STIMULATING HORMONE 4.335 uIU/ML (0.55-4.78); TOTAL 25(OH) VITAMIN D 53.8 NG/ML (20.0-100.0); TOTAL PROTEIN 7.1 G/DL (5.7-8.2); TRIGLYCERIDES LEVEL 146 MG/DL (<150)
== END ==
LOC: M SFHCADAM 14:34
PROVIDERS: ATTEND Physician Assistant Medical
DX: D50.8 Other iron deficiency anemias (principal); R19.5 Other fecal abnormalities; E87.1 Hypo-osmolality and hyponatremia

== ENCOUNTER 2023-05-30 08:19 | Day surgery (SDC) | payer BC ==
[~2023-05-30] VITALS: Ht 149.9 cm; Wt 46.8 kg
[~2023-05-30 08:19] MED LIST changes: +CEFUROXIME 1MG/0.1ML INTRACAMERAL INJ As Ordered ONE; +CYCLOPENTOLATE 1% OPHTH SOLN 2ML BTL OD SCH; +LIDOCAINE 1% SDV 5ML VIAL As Ordered ONE; +MIDAZOLAM INJ 2MG/2ML VIAL As Ordered ONE; +OFLOXACIN 0.3 % (OCUFLOX) OPTH SOL 5ML OD SCH; +PHENYLEPHRINE 2.5% OPHTH SOL 2ML OD SCH; +PROPARACAINE 0.5% OPHTH SOL 15ML OD ONE; +TROPICAMIDE 1% OPHTH SOLN 15ML OD SCH
[2023-05-30] MEDS ORDERED: BSS IRR 500ML/OMIDRIA 4ML IRR BAG (OR ONLY) As Ordered ONE (09:50)
[2023-05-30] MEDS ORDERED: TOBRADEX OPHTH OINT 3.5 GM As Ordered ONE (09:58)
[2023-05-30 10:07] VITALS: BP 155/85; TEMP 97; O2SAT 96
== END 2023-05-30 10:28 | disposition home or self-care (01) ==
LOC: M SDC 08:19
PROVIDERS: ATTEND Ophthalmology
DX: H25.11 Age-related nuclear cataract, right eye (principal); H57.03 Miosis; H21.81 Floppy iris syndrome; I10 Essential (primary) hypertension; M06.9 Rheumatoid arthritis, unspecified; Z79.899 Other long term (current) drug therapy; Z79.631 Long term (current) use of antimetabolite agent
CPT/HCPCS: 66982; J0697; J1097; J2250; V2632

== ENCOUNTER 2023-06-06 16:00 | Outpatient (RCR) | payer BC ==
[~2023-06-06 16:00] MED LIST changes: -CEFUROXIME 1MG/0.1ML INTRACAMERAL INJ As Ordered ONE; -CYCLOPENTOLATE 1% OPHTH SOLN 2ML BTL OD SCH; -LIDOCAINE 1% SDV 5ML VIAL As Ordered ONE; -MIDAZOLAM INJ 2MG/2ML VIAL As Ordered ONE; -OFLOXACIN 0.3 % (OCUFLOX) OPTH SOL 5ML OD SCH; -PHENYLEPHRINE 2.5% OPHTH SOL 2ML OD SCH; -PROPARACAINE 0.5% OPHTH SOL 15ML OD ONE; -TROPICAMIDE 1% OPHTH SOLN 15ML OD SCH
== END 2023-06-22 ==
LOC: M PT 16:00
PROVIDERS: ATTEND Orthopaedic Surgery Hand Surgery
DX: M19.012 Primary osteoarthritis, left shoulder (principal)

== ENCOUNTER 2023-07-11 09:35 | Day surgery (SDC) | payer BC ==
[~2023-07-11] VITALS: Ht 152.4 cm; Wt 45.8 kg
[~2023-07-11 09:35] MED LIST changes: +CEFUROXIME 1MG/0.1ML INTRACAMERAL INJ As Ordered ONE; +CYCLOPENTOLATE 1% OPHTH SOLN 2ML BTL OD SCH; +LIDOCAINE 1% SDV 5ML VIAL As Ordered ONE; +OFLOXACIN 0.3 % (OCUFLOX) OPTH SOL 5ML OD SCH; +PHENYLEPHRINE 2.5% OPHTH SOL 2ML OD SCH; +PROPARACAINE 0.5% OPHTH SOL 15ML OD ONE; +TROPICAMIDE 1% OPHTH SOLN 15ML OD SCH
[2023-07-11] MEDS ORDERED: BSS IRR 500ML/OMIDRIA 4ML IRR BAG (OR ONLY) As Ordered ONE (10:19)
[2023-07-11] MEDS ORDERED: fentaNYL 100 MCG/2 ML INJECTION As Ordered ONE (12:10)
[2023-07-11] MEDS ORDERED: MIDAZOLAM INJ 2MG/2ML VIAL As Ordered ONE (12:10)
[2023-07-11 12:40] VITALS: BP 111/76; TEMP 97.8; O2SAT 95
== END 2023-07-11 12:43 | disposition home or self-care (01) ==
LOC: M SDC 09:35
PROVIDERS: ATTEND Ophthalmology
DX: H25.12 Age-related nuclear cataract, left eye (principal); I10 Essential (primary) hypertension; K21.9 Gastro-esophageal reflux disease without esophagitis; D64.9 Anemia, unspecified; M06.9 Rheumatoid arthritis, unspecified; F32.A Depression, unspecified; Z79.899 Other long term (current) drug therapy; F17.210 Nicotine dependence, cigarettes, uncomplicated
CPT/HCPCS: 66984; J0697; J1097; J2250; J3010; V2632

== ENCOUNTER → 2023-07-14 | Outpatient (REF) | payer BC ==
[~2023-07-14] MED LIST changes: -CEFUROXIME 1MG/0.1ML INTRACAMERAL INJ As Ordered ONE; -CYCLOPENTOLATE 1% OPHTH SOLN 2ML BTL OD SCH; -LIDOCAINE 1% SDV 5ML VIAL As Ordered ONE; -OFLOXACIN 0.3 % (OCUFLOX) OPTH SOL 5ML OD SCH; -PHENYLEPHRINE 2.5% OPHTH SOL 2ML OD SCH; -PROPARACAINE 0.5% OPHTH SOL 15ML OD ONE; -TROPICAMIDE 1% OPHTH SOLN 15ML OD SCH
[2023-07-14 13:51] LABS: BASO % 0.9 % (0.0-1.0); EOS % 0.9 % (0.0-3.0); HEMOGLOBIN 13.6 g/dl (12.0-15.5); LYMPH # 1.1 10^3/uL (1.5-5.0); LYMPH % 22.8 % (24.0-44.0); MEAN CORPUSCULAR HEMOGLOBIN 35.1 pg (27.0-33.0); MEAN CORPUSCULAR VOLUME 103.4 fl (80.0-96.0); MONO # 0.4 10^3/uL (0.0-0.8); MONO % 8.7 % (2.0-8.0); NEUTROPHILS # 3.1 10^3/uL (1.5-8.5); NEUTROPHILS % 66.3 % (36.0-66.0); PLATELET COUNT, AUTOMATED 402 10^3/uL (150-450); RED BLOOD COUNT 3.87 10^6/uL (4.00-5.40); WHITE BLOOD COUNT 4.7 10^3/uL (4.0-10.0)
[2023-07-14 13:58] LABS: ALKALINE PHOSPHATASE 71 U/L (46-116); ALT/SGPT 19 U/L (7.0-40); AST/SGOT 23 U/L (<34); BILIRUBIN,TOTAL 0.4 MG/DL (0.3-1.2); BLOOD UREA NITROGEN 27 MG/DL (9-23); CALCIUM LEVEL 10.2 MG/DL (8.3-10.6); CARBON DIOXIDE LEVEL 28 MMOL/L (20-31); CHLORIDE LEVEL 101 MMOL/L (98-107); CREATININE FOR GFR 0.71 MG/DL (0.55-1.30); GLOMERULAR FILTRATION RATE > 60.0 (>45); GLUCOSE, FASTING 100 MG/DL (74-106); POTASSIUM SERUM 4.5 MMOL/L (3.5-5.1); SODIUM LEVEL 136 MMOL/L (136-145); TOTAL PROTEIN 6.9 G/DL (5.7-8.2)
== END ==
LOC: M LABDRWAD 12:33
PROVIDERS: ATTEND Physician Assistant Medical
DX: Z01.818 Encounter for other preprocedural examination (principal); M25.812 Other specified joint disorders, left shoulder

== ENCOUNTER 2023-07-26 09:03 | Day surgery (SDC) | payer BC ==
[~2023-07-26] VITALS: Ht 149.9 cm; Wt 47.2 kg
[~2023-07-26 09:03] MED LIST changes: +ceFAZolin SOD 2 GM in IV 1 EA IV ONE
[2023-07-26] MEDS ORDERED: fentaNYL 100 MCG/2 ML INJECTION As Ordered ONE (09:21)
[2023-07-26] MEDS ORDERED: MIDAZOLAM INJ 2MG/2ML VIAL As Ordered ONE (09:21)
[2023-07-26] MEDS ORDERED: propofoL 200 MG/20 ML VIAL As Ordered ONE (09:22)
[2023-07-26] MEDS ORDERED: LIDOCAINE 2% 100MG/5ML SDV (FOR ANES.) As Ordered ONE (09:22)
[2023-07-26] MEDS ORDERED: ROCURONIUM BROMIDE 50MG/5ML VIAL As Ordered ONE ×2 (09:22→12:06)
[2023-07-26] MEDS ORDERED: ONDANSETRON 4MG 2ML VIAL As Ordered ONE (09:23)
[2023-07-26] MEDS ORDERED: ROPIvacaine 0.5% 30ML VIAL PN ONE (10:25)
[2023-07-26] MEDS ORDERED: fentaNYL 100 MCG/2 ML INJECTION IV PRN (10:25)
[2023-07-26] MEDS: MIDAZOLAM INJ 2MG/2ML VIAL IV PRN ×2 (10:59→11:01)
[2023-07-26] MEDS ORDERED: LIDOCAINE 2% W/EPINEPHRINE 20ML VIAL **PRES FREE As Ordered ONE (11:01)
[2023-07-26] MEDS ORDERED: TRANEXAMIC ACID 100 MG/ML 10ML VIAL As Ordered ONE (11:02)
[2023-07-26] MEDS ORDERED: LIDOCAINE W/EPINEPHRINE 1% 20ML VIAL As Ordered ONE (11:02)
[2023-07-26] MEDS ORDERED: VANCOMYCIN 1000MG/20ML VIAL As Ordered ONE (11:02)
[2023-07-26] MEDS ORDERED: ALBUTEROL 6.7GM INHALER **FOR ANES. CART/OMNICELL ONLY As Ordered ONE (11:27)
[2023-07-26] MEDS ORDERED: ACETAMINOPHEN 1000MG 100ML IV BAG As Ordered ONE (11:48)
[2023-07-26] MEDS ORDERED: SUGAMMADEX SODIUM 500 MG/5 ML VIAL (BRIDION) As Ordered ONE (11:50)
[2023-07-26] MEDS ORDERED: PHENYLEPHRINE 10MG/ML 1ML VIAL As Ordered ONE (12:09)
[2023-07-26] MEDS ORDERED: PERCOCET PO (13:56)
[2023-07-26] MEDS ORDERED: CEPH500T PO (15:34)
[2023-07-26 16:10] VITALS: BP 131/72; TEMP 98.5; O2SAT 97
== END 2023-07-26 16:25 | disposition home or self-care (01) ==
LOC: M SDC 09:03
PROVIDERS: ATTEND Orthopaedic Surgery Hand Surgery
DX: M12.812 Other specific arthropathies, not elsewhere classified, left shoulder (principal); I10 Essential (primary) hypertension; M06.9 Rheumatoid arthritis, unspecified; M81.0 Age-related osteoporosis without current pathological fracture; Z79.899 Other long term (current) drug therapy; D64.9 Anemia, unspecified; F17.210 Nicotine dependence, cigarettes, uncomplicated
CPT/HCPCS: 23472; 73020; 88300; C1713; C1776; J0131; J0690; J1100; J2250; J2371; J2405; J3010; J3370

== ENCOUNTER → 2023-08-07 | Outpatient (CLI) | payer BC ==
[~2023-08-07] MED LIST changes: +CEPH500T PO; +PERCOCET PO; -ceFAZolin SOD 2 GM in IV 1 EA IV ONE
== END ==
LOC: M SOG 08:08
PROVIDERS: ATTEND Physician Assistant
DX: M25.512 Pain in left shoulder (principal); Z96.612 Presence of left artificial shoulder joint

== ENCOUNTER 2023-08-17 08:19 | Outpatient (RCR) | payer BC ==
[~2023-08-17 08:19] MED LIST changes: +IRBE300T25 PO; -IRBE300T7 PO
== END 2023-08-23 ==
LOC: M PT 08:19
PROVIDERS: ATTEND Physician Assistant
DX: Z47.89 Encounter for other orthopedic aftercare (principal); Z96.612 Presence of left artificial shoulder joint

== ENCOUNTER → 2023-08-29 | Outpatient (CLI) | payer BC | LOC: M SOG 07:50 | PROVIDERS: ATTEND Physician Assistant | DX: M25.512 Pain in left shoulder (principal) ==

== ENCOUNTER 2023-09-19 06:56 | Outpatient (RCR) | payer BC | END 2023-09-21 | LOC: M PT 06:56 | PROVIDERS: ATTEND Physician Assistant | DX: M25.812 Other specified joint disorders, left shoulder (principal); Z96.612 Presence of left artificial shoulder joint ==

== ENCOUNTER → 2023-10-09 | Outpatient (CLI) | payer BC | LOC: M RAD 07:49 | PROVIDERS: ATTEND Physician Assistant | DX: M25.561 Pain in right knee (principal); M25.761 Osteophyte, right knee ==

== ENCOUNTER 2023-10-12 07:00 | Outpatient (RCR) | payer BC | END 2023-10-22 | LOC: M PT 07:00 | PROVIDERS: ATTEND Physician Assistant | DX: M25.812 Other specified joint disorders, left shoulder (principal) ==

== ENCOUNTER → 2023-10-12 | Outpatient (CLI) | payer BC | LOC: M SOG 07:48 | PROVIDERS: ATTEND Physician Assistant | DX: Z96.612 Presence of left artificial shoulder joint (principal) ==

== ENCOUNTER 2023-11-07 13:15 | Outpatient (RCR) | payer BC | END 2023-11-21 | LOC: M PT 13:15 | PROVIDERS: ATTEND Physician Assistant | DX: Z47.89 Encounter for other orthopedic aftercare (principal); M25.812 Other specified joint disorders, left shoulder; Z96.612 Presence of left artificial shoulder joint ==

== ENCOUNTER → 2024-01-17 | Outpatient (REF) | payer BC | LOC: M LAB REF 10:46 | PROVIDERS: ATTEND Internal Medicine Gastroenterology | DX: R10.30 Lower abdominal pain, unspecified (principal); R19.7 Diarrhea, unspecified ==

== ENCOUNTER 2024-02-07 12:26 | Day surgery (SDC) | payer BC ==
[~2024-02-07] VITALS: Ht 149.9 cm; Wt 44.0 kg
[~2024-02-07 12:26] MED LIST changes: +NS 1,000 ML IV SCH
[2024-02-07] MEDS ORDERED: propofoL 200 MG/20 ML VIAL As Ordered ONE (13:17)
[2024-02-07] MEDS ORDERED: LIDOCAINE 2% 100MG/5ML SDV (FOR ANES.) As Ordered ONE (13:17)
[2024-02-07 14:40] VITALS: TEMP 97.2
[2024-02-07 14:55] VITALS: BP 167/90; O2SAT 100
== END 2024-02-07 15:02 | disposition home or self-care (01) ==
LOC: M OPP 12:26
PROVIDERS: ATTEND Internal Medicine Gastroenterology
DX: K63.5 Polyp of colon (principal); K63.89 Other specified diseases of intestine; K64.0 First degree hemorrhoids; K57.30 Diverticulosis of large intestine without perforation or abscess without bleeding; R19.4 Change in bowel habit; I10 Essential (primary) hypertension; M06.9 Rheumatoid arthritis, unspecified; F17.200 Nicotine dependence, unspecified, uncomplicated; Z79.1 Long term (current) use of non-steroidal anti-inflammatories (NSAID); Z79.899 Other long term (current) drug therapy

== ENCOUNTER → 2024-03-21 | Outpatient (REF) | payer BC ==
[~2024-03-21] MED LIST changes: -NS 1,000 ML IV SCH
[2024-03-21 18:37] LABS: BASO % 0.8 % (0.0-1.0); EOS % 0.6 % (0.0-3.0); HEMATOCRIT 39.1 % (36.0-47.0); HEMOGLOBIN 13.7 g/dl (12.0-15.5); LYMPH # 1.2 10^3/uL (1.5-5.0); LYMPH % 23.3 % (24.0-44.0); MEAN CORPUSCULAR HEMOGLOBIN 36.6 pg (27.0-33.0); MEAN CORPUSCULAR VOLUME 104.5 fl (80.0-96.0); MONO # 0.5 10^3/uL (0.0-0.8); MONO % 9.6 % (2.0-8.0); NEUTROPHILS # 3.3 10^3/uL (1.5-8.5); NEUTROPHILS % 65.3 % (36.0-66.0); PLATELET COUNT, AUTOMATED 389 10^3/uL (150-450); RED BLOOD COUNT 3.74 10^6/uL (4.00-5.40); WHITE BLOOD COUNT 5.1 10^3/uL (4.0-10.0)
[2024-03-21 19:03] LABS: ALBUMIN 4.2 G/DL (3.2-5.2); ALKALINE PHOSPHATASE 80 U/L (46-116); ALT/SGPT 17 U/L (7.0-40); AST/SGOT 23 U/L (<34); BILIRUBIN,TOTAL 0.5 MG/DL (0.3-1.2); BLOOD UREA NITROGEN 17 MG/DL (9-23); CALCIUM LEVEL 10.2 MG/DL (8.3-10.6); CARBON DIOXIDE LEVEL 28 MMOL/L (20-31); CHLORIDE LEVEL 96 MMOL/L (98-107); CHOLESTEROL LEVEL 191 MG/DL (<200); CHOLESTEROL RISK RATIO 2.42 (<5); CREATININE FOR GFR 0.74 MG/DL (0.55-1.30); GLOMERULAR FILTRATION RATE > 60.0 (>45); GLUCOSE, FASTING 89 MG/DL (74-106); HDL CHOLESTEROL 78.8 MG/DL (>40); NON-HDL-C 112.2 MG/DL; POTASSIUM SERUM 3.7 MMOL/L (3.5-5.1); SODIUM LEVEL 129 MMOL/L (136-145); TRIGLYCERIDES LEVEL 116 MG/DL (<150)
[2024-03-21 19:06] LABS: THYROID STIMULATING HORMONE 2.471 uIU/ML (0.55-4.78)
[2024-03-21 19:07] LABS: TOTAL 25(OH) VITAMIN D 65.3 NG/ML (20.0-100.0)
[2024-03-21 19:09] LABS: FREE T4 1.19 NG/DL (0.89-1.76)
== END ==
LOC: M SFHCADAM 11:43
PROVIDERS: ATTEND Physician Assistant Medical
DX: I10 Essential (primary) hypertension (principal); H91.93 Unspecified hearing loss, bilateral; E55.9 Vitamin D deficiency, unspecified; E78.2 Mixed hyperlipidemia; F10.11 Alcohol abuse, in remission; M06.9 Rheumatoid arthritis, unspecified

== ENCOUNTER → 2024-03-27 | Outpatient (REF) | payer BC ==
[2024-03-27 13:26] LABS: BLOOD UREA NITROGEN 16 MG/DL (9-23); CALCIUM LEVEL 10.2 MG/DL (8.3-10.6); CARBON DIOXIDE LEVEL 32 MMOL/L (20-31); CHLORIDE LEVEL 99 MMOL/L (98-107); GLOMERULAR FILTRATION RATE > 60.0 (>45); GLUCOSE, FASTING 95 MG/DL (74-106); POTASSIUM SERUM 3.6 MMOL/L (3.5-5.1); SODIUM LEVEL 134 MMOL/L (136-145)
== END ==
LOC: M SFHCADAM 09:05
PROVIDERS: ATTEND Physician Assistant Medical
DX: E87.1 Hypo-osmolality and hyponatremia (principal)

== ENCOUNTER → 2024-08-29 | Outpatient (CLI) | payer BC | LOC: M PLAIMG 12:51 | PROVIDERS: ATTEND Otolaryngology | DX: S01.00XD Unspecified open wound of scalp, subsequent encounter (principal); Z96.21 Cochlear implant status ==

== ENCOUNTER 2024-10-17 14:11 | Outpatient (RCR) | payer BC | END 2024-10-21 | LOC: M PT 14:11 | PROVIDERS: ATTEND Physician Assistant Medical | DX: M53.3 Sacrococcygeal disorders, not elsewhere classified (principal); G89.29 Other chronic pain ==

== ENCOUNTER 2024-11-07 12:58 | Outpatient (RCR) | payer BC | END 2024-11-20 | LOC: M PT 12:58 | PROVIDERS: ATTEND Physician Assistant Medical | DX: M53.3 Sacrococcygeal disorders, not elsewhere classified (principal); G89.29 Other chronic pain ==

== ENCOUNTER → 2025-04-29 | Outpatient (REF) | payer BC ==
[2025-04-29 17:49] LABS: APPEARANCE, URINE CLEAR (CLEAR); BACTERIA, URINE AUTO NEGATIVE (NEGATIVE); BILIRUBIN, URINE AUTO NEGATIVE (NEGATIVE); BLOOD, URINE BLOOD NEGATIVE (NEGATIVE); GLUCOSE, URINE (UA) AUTO NEGATIVE (NEGATIVE); KETONE, URINE AUTO TRACE mg/dL (NEGATIVE); LEUKOCYTE ESTERASE, URINE AUTO NEGATIVE (NEGATIVE); MUCUS, URINE SMALL (NEGATIVE); NITRITE, URINE AUTO NEGATIVE (NEGATIVE); PROTEIN, URINE AUTO NEGATIVE (NEGATIVE); RBC, URINE AUTO 5 /HPF (0-3); SPECIFIC GRAVITY URINE AUTO 1.017 (1.002-1.035); SQUAMOUS EPITHELIAL CELL UR AU 1 /HPF (0-6); UROBILINOGEN, URINE AUTO 0.2 mg/dL (0.0-2.0); WBC, URINE AUTO 1 /HPF (0-3)
[2025-04-29 18:17] LABS: ALT/SGPT 20 U/L (7.0-40); AST/SGOT 30 U/L (<34); CALCIUM LEVEL 9.8 MG/DL (8.3-10.6); CARBON DIOXIDE LEVEL 30 MMOL/L (20-31); CHLORIDE LEVEL 98 MMOL/L (98-107); CREATININE FOR GFR 0.62 MG/DL (0.55-1.30); GLOMERULAR FILTRATION RATE > 90.0 (>45); POTASSIUM SERUM 4.8 MMOL/L (3.5-5.1); SODIUM LEVEL 136 MMOL/L (136-145)
[2025-04-29 18:19] LABS: FREE T4 1.26 NG/DL (0.89-1.76)
[2025-04-29 21:14] LABS: CREATININE, URINE 46.6 MG/DL
[2025-04-29 21:15] LABS: MALB URINE SIEMENS 17.0 MG/L; MAU/CREAT RATIO 36.4 MCG/MG (0.0-30.0)
== END ==
LOC: M SFHCADAM 11:35
PROVIDERS: ATTEND Physician Assistant Medical
DX: I10 Essential (primary) hypertension (principal); H91.93 Unspecified hearing loss, bilateral; F10.11 Alcohol abuse, in remission; E87.1 Hypo-osmolality and hyponatremia

== ENCOUNTER → 2025-05-01 | Outpatient (REF) | payer BC ==
[2025-05-01 16:04] LABS: SODIUM 24 HOUR URINE 116 MMOL/24 (40-220)
== END ==
LOC: M SFHCADAM 13:15
PROVIDERS: ATTEND Physician Assistant Medical
DX: I10 Essential (primary) hypertension (principal); H91.93 Unspecified hearing loss, bilateral; F10.11 Alcohol abuse, in remission; E87.1 Hypo-osmolality and hyponatremia

== ENCOUNTER → 2025-05-20 | Outpatient (CLI) | payer BC | LOC: M RAD 09:09 | PROVIDERS: ATTEND Physician Assistant Medical | DX: I10 Essential (primary) hypertension (principal) ==